=== PATIENT | male | born 1945 | race Caucasian/White ===

== ENCOUNTER 2017-08-02 13:44 | Inpatient (IN) | payer MEDICARE, BC ==
[2017-08-02] VITALS (9 sets, daily range): BP systolic 118–153; BP diastolic 60–87
[~2017-08-02] VITALS: Ht 152.4 cm; Wt 96.2 kg
[~2017-08-02 13:44] MED LIST: ALAVERT10 MG; ASPIRIN81 M2 PO; ATORVASTATIN CA20 MG PO; BENICAR HCT 401 EAC1; BENICAR HCT 401 EAC1 PO; CARDIZEM CD180 MG PO; CARTIA XT; CENTRUM SILVER1 EAC2 PO; CHROMIUM400 MCG PO; CLARITIN10 MG PO; COLACE100 MG PO; COUMADIN7.5 MG; FISH OIL 1,001000 M2 PO; GLUCOPHAGE XR500 MG PO; GLUCOSAMINE HC500 MG PO; JANTOVEN5 MG; LANOXIN 0.250.25 M1 PO; LOPERAMIDE 2 MG2 M1 PO; NEURONTIN 300300 M1 PO; POTASSIUM20 PO; REFRESH TEARS15 ML OPHTHALMIC; SALINE NASAL SPRAY; SENOKOT-S TABL1 EACH PO; TYLENOL325 MG PO; XARELTO20 MG PO; ZOFRAN ODT4 MG DISSOLVE
[2017-08-02 14:32] LABS: HEMATOCRIT 27.8 % (42.0-52.0); HEMOGLOBIN 8.6 gm/dL (14.0-18.0); MCH 25.9 pg (26.0-34.0); MCHC 30.9 g/dL (28.0-37.0); MCV 83.9 fL (80.0-100.0); NUCLEATED RBCS 0 /100WBC; PLATELET COUNT* 595 thou/uL (150-400); RBC 3.31 mil/uL (4.50-6.00); RDW-CV 23.4 % (10.5-14.5)
[2017-08-02 14:38] LABS: URINE BILIRUBIN NEGATIVE (Negative); URINE BLOOD 2+ (Negative); URINE CLARITY CLEAR; URINE COLOR YELLOW; URINE GLUCOSE-RANDOM 2+ (Negative); URINE KETONES NEGATIVE (Negative); URINE LEUKOCYTES-REFLEX NEGATIVE (Negative); URINE NITRITE-REFLEX NEGATIVE (Negative); URINE PROTEIN 3+ (Negative); URINE SPECIFIC GRAVITY >= 1.030 (1.005-1.030); URINE UROBILINOGEN 0.2 E.U./dl (0.2-1.0)
[2017-08-02 14:39] LABS: APTT 27.4 Seconds (25.0-31.3); CALCIUM 9.7 mg/dL (8.5-10.1); CREATININE 1.6 mg/dL (0.6-1.3); INR 1.3; PROTIME 13.1 Seconds (9.20-11.50)
[2017-08-02 14:43] LABS: ALBUMIN 2.4 g/dL (3.4-5.0); TOTAL BILIRUBIN 0.7 mg/dL (<0.1-1.0); TOTAL PROTEIN 6.2 g/dL (6.4-8.2)
[2017-08-02 14:47] LABS: WBC 79.2 thou/uL (4.0-11.0)
[2017-08-02 15:15] LABS: BACTERIA-REFLEX 1-9 Few /HPF (None Seen); CRYSTALS None Seen /LPF (None Seen); FINE GRANULAR CASTS 0-3 Few /LPF (None Seen); HYALINE CASTS 0-3 Few /LPF (None Seen); MUCUS 4-6 Moderate strn/LPF (None Seen); SQUAMOUS 0-3 Few /LPF (0-3); URINE RBC 0-2 Rare /HPF (0-2); URINE WBC-REFLEX 0-5 Rare /HPF (0-5)
[2017-08-02 15:18] LABS: ABSOLUTE LYMPHOCYTES 1.6 thou/uL (0.8-5.3); ABSOLUTE MONOCYTES 1.6 thou/uL (0.0-1.2)
[2017-08-02 15:19] LABS: ANISOCYTOSIS 2+; HYPOCHROMASIA 2+; PLATELET ESTIMATE INCREASED; POIKILOCYTOSIS 2+
[2017-08-03] VITALS (16 sets, daily range): BP systolic 121–150; BP diastolic 66–89
[2017-08-03 05:00] LABS: BASOPHILS 0.2 %; HEMATOCRIT 25.3 % (42.0-52.0); HEMOGLOBIN 7.7 gm/dL (14.0-18.0); LYMPHOCYTES 0.7 %; MCH 26.1 pg (26.0-34.0); MCHC 30.4 g/dL (28.0-37.0); MCV 85.7 fL (80.0-100.0); MONOCYTES 2.9 %; MPV 7.4 fl. (7.2-11.1); NUCLEATED RBCS 0 /100WBC; POLYS 96.2 %; RBC 2.96 mil/uL (4.50-6.00); RDW-CV 22.9 % (10.5-14.5)
[2017-08-03 05:05] LABS: ABSOLUTE BASOPHILS 0.1 thou/uL (0.0-0.2); ABSOLUTE LYMPHOCYTES 0.5 thou/uL (0.8-5.3); ABSOLUTE MONOCYTES 1.9 thou/uL (0.0-1.2); PLATELET COUNT* 517 thou/uL (150-400)
[2017-08-03 05:06] LABS: WBC 65.5 thou/uL (4.0-11.0)
[2017-08-03 05:11] LABS: CALCIUM 8.9 mg/dL (8.5-10.1); CREATININE 1.1 mg/dL (0.6-1.3); MAGNESIUM 2.2 mg/dL (1.8-2.4); PHOSPHORUS* 3.1 mg/dL (2.5-4.9); POTASSIUM 3.7 mmol/L (3.5-5.1)
[2017-08-03 10:34] LABS: CALCIUM 8.4 mg/dL (8.5-10.1); CREATININE 1.1 mg/dL (0.6-1.3); POTASSIUM 4.1 mmol/L (3.5-5.1)
[2017-08-03 10:38] LABS: ALBUMIN 1.9 g/dL (3.4-5.0); TOTAL BILIRUBIN 0.3 mg/dL (<0.1-1.0); TOTAL PROTEIN 5.1 g/dL (6.4-8.2)
--- NOTE | 2017-08-03 11:40 | EKG ---
[place] [address] ELECTROCARDIOGRAM REPORT Name: NY MARTINEZ Room: [address] ADM IN M.R.#: [id number] Admission: 08/02/17 Attend Phys: Teja Solis, Discharge: Date of : 45 Report #: [id number] THIS REPORT FOR: //name// [facility] ED Test Date: 2017-08-02 Test Time: 14:03:19 Pat Name: NY MARTINEZ Department: Room: [facility] Gender: M Tiltrotor Crew Chief: MS : 1945 Requested By: Angie England Order Number: [id number] MD: Gavino Smith Measurements Intervals [place] Rate: 93 P: [place]: QRS: -27 QRSD: 110 T: 122 QT: 369 QTc: 459 Interpretive Statements Atrial fibrillation Ventricular premature complex LVH with secondary repolarization abnormality Baseline wander in lead(s) V6 Compared to ECG 05/18/2012 07:02:51 Ventricular premature complex(es) now present Left ventricular hypertrophy now present Early repolarization now present Myocardial infarct finding no longer present Electronically Signed On 08-03-2017 11:39:55 FLUID DYNAMICIST by Gavino Smith [email or web address] <ELECTRONICALLY SIGNED> By: Gavino Smith MD, FACC 08/03/17 1139 1403 1403 Gavino Smith MD, FACC /EPI
[2017-08-03 15:59] LABS: HEMATOCRIT 26.9 % (42.0-52.0); HEMOGLOBIN 8.4 gm/dL (14.0-18.0)
[2017-08-04] VITALS (10 sets, daily range): BP systolic 90–153; BP diastolic 50–87
[2017-08-04 04:37] LABS: HEMATOCRIT 26.6 % (42.0-52.0); HEMOGLOBIN 8.3 gm/dL (14.0-18.0); MCH 26.6 pg (26.0-34.0); MCHC 31.3 g/dL (28.0-37.0); MCV 85.2 fL (80.0-100.0); MPV 7.4 fl. (7.2-11.1); RBC 3.12 mil/uL (4.50-6.00)
[2017-08-04 05:11] LABS: WBC 27.1 thou/uL (4.0-11.0)
[2017-08-04 05:44] LABS: ALBUMIN 1.9 g/dL (3.4-5.0); CALCIUM 8.2 mg/dL (8.5-10.1); MAGNESIUM 2.1 mg/dL (1.8-2.4); POTASSIUM 3.4 mmol/L (3.5-5.1); TOTAL BILIRUBIN 0.7 mg/dL (<0.1-1.0); TOTAL PROTEIN 5.1 g/dL (6.4-8.2)
--- NOTE | 2017-08-04 09:37 | CON ---
[facility] [address] [place] [address] CONSULTATION Name: NY MARTINEZ Room: [address] IN .R.#: [id number] Admission: 08/02/17 Attend Phys: Teja Solis, Discharge: Date of : 45 Report #: [id number] THIS REPORT FOR: //name// CC: Juan Solis DATE OF SERVICE: 08/03/2017 REQUESTING PHYSICIAN: Teja Solis M.D. REASON FOR CONSULTATION: Acute kidney injury. HISTORY OF PRESENT ILLNESS: The patient is a 72-year-old gentleman with medical history significant for stage IV pancreatic cancer, who presents with complaints of abdominal distention, abdominal pain, and unable to have bowel movements for several days prior to admission. He was diagnosed with small bowel obstruction and diverticulitis and was admitted to the hospital. He was started on IV fluids, was started on meropenem, and he had several bowel movements overnight and his creatinine on admission was 1.6, came down this morning to 1.1 and 6 hours later stayed again at 1.1. His serum sodium on admission was slightly lower at 134, 136 now. PAST MEDICAL HISTORY: Positive for stage IV pancreatic cancer. He also had coronary artery disease and history of PTCA with stent placement. FAMILY HISTORY: Noncontributory. SOCIAL HISTORY: Used to smoke, but no current tobacco or alcohol abuse. PAST SURGICAL HISTORY: He had ____ in March of 2016, splenectomy done. MEDICATIONS: Prior to admission reviewed. REVIEW OF SYSTEMS: Positive for abdominal distention and pain, which is better now. He did move his bowel. He denies any problems with urination. Denies being depressed. Denies any changes in visual or hearing acuity. PHYSICAL EXAMINATION: GENERAL: Awake, alert, and oriented. VITAL SIGNS: His blood pressure now is 136/70, heart rate 76, afebrile. HEENT: Pupils are round. NECK: [place] [address] CONSULTATION Name: NY MARTINEZ Room: [address] IN [facility].#: [id number] Admission: 08/02/17 Attend Phys: Teja Solis, Discharge: Date of : 45 Report #: [id number] LUNGS: Few coarse breath sounds but overall clear. CARDIOVASCULAR: Tachycardia. ABDOMEN: Distended, but soft. LOWER EXTREMITIES: No edema. LABORATORY DATA: Significant for a white count of 65,000 down from 79,000 yesterday, creatinine is 1.1 down from 1.6 yesterday. ASSESSMENT: Episodes of acute kidney injury due to ileus, which is resolving now, having good bowel sounds and good bowel movements. His acute kidney injury is resolving. Creatinine is down to 1.1. He is having no problems making urine. So from my standpoint, he is doing much better. I will follow him in some distance. Thank you very much for asking my opinion on acute kidney injury in this patient. <ELECTRONICALLY SIGNED> By: Jarod Cabrera MD 08/04/17 0937 1335 [id number] Cabrera MD /[facility]
--- NOTE | 2017-08-04 14:51 | 2DMMODE ---
[place] [address] 2 D/M-MODE ECHOCARDIOGRAM Name: NY MARTINEZ Room: 002P ADM IN [facility]#: [id number] Admission: 08/02/17 Attend Phys: Teja Whitt Discharge: Date of : 45 Date of Service: 08/04/17 1450 Report #: [id number] THIS REPORT FOR: //name// APPROVED REPORT Study performed: 08/04/2017 10:03:24 EXAM: Comprehensive 2D, Doppler, and color-flow Echocardiogram Patient Location: In-Patient Room #: 002 Status: routine BSA: 1.95 HR: 97 bpm BP: 135/76 mmHg Rhythm: Atrial Fibrillation Other Information Study Quality: Good Indications Atrial Fibrillation Sepsis 2D Dimensions LVEF(%): 70.31 (>50%) IVSd: 18.08 (7-11mm) LVOT Diam: 20.53 (18-24mm) LVDd: 31.42 mm PWd: 12.50 (7-11mm) Ascending Ao: 37.47 (22-36mm) LVDs: 19.31 (25-40mm) Aortic Root: 39.89 mm Bearden's LVEF: 70.31 % Volumes Left Atrial Volume (Systole) LA ESV Index: 40.90 mL/m2 Aortic Valve AoV Peak Wilton.: 2.29 m/s AO Peak Gr.: 20.95 mmHg LVOT Max P.88 mmHg AO Mean Gr.: 11.07 mmHg LVOT Mean P.89 mmHg LVOT Max V: 1.72 m/s AO V2 VTI: 38.28 cm LVOT Mean V: 1.11 m/s CASSY (VTI): 2.41 cm2 LVOT V1 VTI: 27.83 cm AI Evangeline: 2.30 m/s2 AI PHT: 616.71 [place] [address] 2 D/M-MODE ECHOCARDIOGRAM Name: NY MARTINEZ Room: [address] IN ..#: [id number] Admission: 08/02/17 Attend Phys: Teja Whitt Discharge: Date of : 45 Date of Service: 08/04/17 1450 Report #: [id number] Mitral Valve MV Decel. Time: 163.13 ms MV E Max Wilton.: 1.11 m/s MV PHT: 47.31 ms MVA (PHT): 4.65 cm2 TDI E/Lateral E': 6.53 E/Medial E': 12.33 Medial E' Wilton.: 0.09 m/s Lateral E' Wilton.: 0.17 m/s Pulmonary Valve PV Peak Wilton.: 1.27 m/s PV Peak Gr.: 6.43 mmHg Tricuspid Valve TR Peak Gr.: 29.71 mmHg RVSP: 34.00 mmHg Left Ventricle The left ventricle is normal size. There is normal LV segmental wall motion. Mild concentric left ventricular hypertrophy. Left ventricular systolic function is normal. The left ventricular ejection fraction is within the normal range. LVEF is 65%. This study is not technically sufficient to allow evaluation of the LV diastolic function due to atrial fibrillation. Right Ventricle The right ventricle is normal size. The right ventricular systolic function is normal. Atria Left atrium is mildly dilated. The right atrium size is normal. Aortic Valve Mild aortic valve sclerosis. Moderate aortic regurgitation. Mild aortic stenosis. Mitral Valve The mitral valve is normal in structure. Trace mitral regurgitation. No evidence of mitral valve stenosis. Tricuspid Valve The tricuspid valve is normal in structure. Trace tricuspid regurgitation. The RVSP is 30-[place] [address] 2 D/M-MODE ECHOCARDIOGRAM Name: NY MARTINEZ Room: [address] IN [facility]#: [id number] Admission: 08/02/17 Attend Phys: Teja Whitt Discharge: Date of : 45 Date of Service: 08/04/17 1450 Report #: [id number] Pulmonic Valve The pulmonary valve is normal in structure. There is no pulmonic valvular regurgitation. Great Vessels The aortic root is normal in size. IVC is normal in size and collapses with >50% inspiration Pericardium There is no pericardial effusion. <Conclusion> The left ventricle is normal size. Mild concentric left ventricular hypertrophy. Left ventricular systolic function is normal. The left ventricular ejection fraction is within the normal range. LVEF is 65%. This study is not technically sufficient to allow evaluation of the LV diastolic function due to atrial fibrillation. The right ventricle is normal size. Left atrium is mildly dilated. Mild aortic valve sclerosis. Moderate aortic regurgitation. Mild aortic stenosis. The mitral valve is normal in structure. Trace mitral regurgitation. The tricuspid valve is normal in structure. Trace tricuspid regurgitation. The RVSP is 30-35 mmHg. IVC is normal in size and collapses with >50% inspiration There is no pericardial effusion. There is normal LV segmental wall motion. <ELECTRONICALLY SIGNED> By: Hermelindo Celis MD, FACC 08/04/17 1450 1450 1450 Hermelindo Celis MD, FACC /INF
[2017-08-05 04:40] VITALS: BP 151/72
[2017-08-05 05:13] LABS: HEMATOCRIT 27.7 % (42.0-52.0); HEMOGLOBIN 8.8 gm/dL (14.0-18.0); MCH 27.3 pg (26.0-34.0); MCHC 31.6 g/dL (28.0-37.0); MCV 86.3 fL (80.0-100.0); MPV 7.7 fl. (7.2-11.1); RBC 3.21 mil/uL (4.50-6.00); RDW-CV 22.2 % (10.5-14.5); WBC 24.9 thou/uL (4.0-11.0)
[2017-08-05 05:38] LABS: ALBUMIN 1.9 g/dL (3.4-5.0); CREATININE 0.9 mg/dL (0.6-1.3); POTASSIUM 3.4 mmol/L (3.5-5.1); TOTAL BILIRUBIN 0.5 mg/dL (<0.1-1.0); TOTAL PROTEIN 5.2 g/dL (6.4-8.2)
[2017-08-05 08:00] VITALS: BP 149/80
[2017-08-05 11:41] VITALS: BP 163/69
[2017-08-05 16:42] VITALS: BP 163/79
[2017-08-06] VITALS (7 sets, daily range): BP systolic 153–162; BP diastolic 77–93
[2017-08-06 02:49] LABS: MAGNESIUM 2.1 mg/dL (1.8-2.4); POTASSIUM 3.4 mmol/L (3.5-5.1)
--- NOTE | 2017-08-06 17:56 | EKG ---
[place] [address] ELECTROCARDIOGRAM REPORT Name: NY MARTINEZ Room: [address] ADM IN M.R.#: [id number] Admission: 08/02/17 Attend Phys: Teja Solis, Discharge: Date of : 45 Report #: [id number] THIS REPORT FOR: //name// [facility] Test Date: 2017-08-06 Test Time: 01:46:19 Pat Name: NY MARTINEZ Department: Room: [address] Gender: M Radio Communications Superintendent: : 1945 Requested By: Gavino Smith Order Number: [id number] Reading MD: Daren Sales Measurements Intervals [place] Rate: 83 P: DE: QRS: -27 QRSD: 109 T: 154 QT: 359 QTc: 422 Interpretive Statements Atrial fibrillation Borderline left axis deviation Borderline repolarization abnormality Compared to ECG 08/02/2017 14:03:19 Ventricular premature complex(es) no longer present Left ventricular hypertrophy no longer present Electronically Signed On 08-06-2017 17:56:36 CLIENT TECHNOLOGIES SPECIALIST by Daren Sales [email or web address] <ELECTRONICALLY SIGNED> By: Daren Sales MD, FACC 08/06/17 1756 0146 0146 Daren Sales MD, [facility] /EPI
[2017-08-07] VITALS (7 sets, daily range): BP systolic 138–164; BP diastolic 65–94
[2017-08-07 04:59] LABS: HEMATOCRIT 28.7 % (42.0-52.0); HEMOGLOBIN 8.9 gm/dL (14.0-18.0); MCHC 31.1 g/dL (28.0-37.0); MCV 86.6 fL (80.0-100.0); MPV 7.9 fl. (7.2-11.1); RBC 3.31 mil/uL (4.50-6.00); RDW-CV 22.6 % (10.5-14.5); WBC 22.6 thou/uL (4.0-11.0)
[2017-08-07 05:19] LABS: ALBUMIN 1.9 g/dL (3.4-5.0); CALCIUM 8.4 mg/dL (8.5-10.1); CREATININE 0.9 mg/dL (0.6-1.3); POTASSIUM 3.5 mmol/L (3.5-5.1); TOTAL BILIRUBIN 0.5 mg/dL (<0.1-1.0); TOTAL PROTEIN 5.1 g/dL (6.4-8.2)
--- NOTE | 2017-08-07 09:00 | CON ---
[address] [address] CONSULTATION Name: NY MARTINEZ Room: [address] IN .R.#: [id number] Admission: 08/02/17 Attend Phys: Teja Solis, Discharge: Date of : 45 Report #: [id number] THIS REPORT FOR: //name// CC: Juan Solis DATE OF SERVICE: 08/03/2017 CHIEF COMPLAINT: Sepsis, abdominal pain. HISTORY OF PRESENT ILLNESS: The patient is a 72-year-old man we are asked to see him in regards to atrial fibrillation. He was admitted with sepsis syndrome and pancreatitis. He has numerous medical problems, the most severe of which is his bowel obstruction and pancreatic cancer. He has atrial fibrillation chronically and had been anticoagulated with Xarelto and baby aspirin as an outpatient by his usual aluminum pool installer at [facility]. He denies symptoms of palpitations. He has no neuro symptoms of slurred speech, numbness or weakness. From a cardiovascular standpoint, he has a history of remote PCI and denies chest pain or pressure. PAST MEDICAL HISTORY: Atrial fibrillation was diagnosed about 10 years ago. He had a PCI x 2 in 2005 and 2006. 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 HOME MEDICATIONS: Included the following: Baby aspirin, Xarelto, Cardizem 180 mg daily, gabapentin, glucosamine, metformin, Benicar/HCTZ 40/25 mg daily, potassium chloride 20 mEq daily. SOCIAL HISTORY: He is a nonsmoker. REVIEW OF SYSTEMS: GASTROINTESTINAL: Positive abdominal pain. NEUROLOGIC: Denies slurred speech, numbness or weakness. CARDIOVASCULAR: No chest pain, no palpitation, no orthopnea, no PND, no edema. HEMATOLOGIC: Positive anemia. RENAL: Positive history of renal disease. SKIN: No rash. GENERAL: No fevers or chills. PHYSICAL EXAMINATION: VITAL SIGNS: Blood pressure today is 140/70, heart rate is 80 in atrial fibrillation. GENERAL: This is a thin, cachectic appearing middle-aged male. He is alert, [place] [address] CONSULTATION Name: NY MARTINEZ Room: [address] IN [facility]#: [id number] Admission: 08/02/17 Attend Phys: Teja Solis, Discharge: Date of : 45 Report #: [id number] NECK: Supple. No jugular venous distention. CARDIOVASCULAR: Regular. There is no murmur. LUNGS: Diminished breath sounds, but clear to auscultation. ABDOMEN: Soft, nontender. EXTREMITIES: There is peripheral wasting. SKIN: Warm and dry. PSYCHIATRIC: The patient has appropriate mood and affect. Electrocardiogram demonstrates atrial fibrillation with a controlled ventricular response, no ST segment abnormalities. LABORATORY DATA: Hemoglobin 7.7, white blood cell count 65.5, platelet count is 517,000. Sodium is 136, potassium 4.1, chloride is 103, CO2 is 26, BUN is 46, creatinine is 1.1. IMPRESSION: 1. Atrial fibrillation. This is rate controlled and chronic. We will continue with conservative medical therapy. I would like to continue with Xarelto as long as there is no active bleeding. I think his anemia is secondary to chronic disease. 2. Coronary artery disease. He remains asymptomatic for angina and a conservative approach is recommended. 3. Pancreatic cancer. 4. Bowel obstruction. He is currently n.p.o. and has an NG tube. If need be when his Xarelto is cleared from his system within the next 3-4 days, I would switch him over to Lovenox, but currently I suspect this drug is not being cleared very quickly and I would not start this until mid week. <ELECTRONICALLY SIGNED> By: Gavino Smith MD, FACC 08/07/17 0900 1127 [id number] Smith MD, FACC /nt
[2017-08-07 15:32] LABS: POTASSIUM 3.4 mmol/L (3.5-5.1)
[2017-08-07 17:22] LABS: HEMATOCRIT 28.6 % (42.0-52.0); HEMOGLOBIN 9.2 gm/dL (14.0-18.0)
[2017-08-07 17:32] LABS: INR 1.2; PROTIME 11.9 Seconds (9.20-11.50)
[2017-08-08 04:00] VITALS: BP 166/85
[2017-08-08 08:00] VITALS: BP 158/88
[2017-08-08 08:26] LABS: HEMATOCRIT 28.7 % (42.0-52.0); HEMOGLOBIN 9.1 gm/dL (14.0-18.0); MCH 27.2 pg (26.0-34.0); MCHC 31.7 g/dL (28.0-37.0); MPV 7.9 fl. (7.2-11.1); RBC 3.34 mil/uL (4.50-6.00); RDW-CV 23.1 % (10.5-14.5); WBC 19.5 thou/uL (4.0-11.0)
[2017-08-08 08:31] LABS: CALCIUM 8.3 mg/dL (8.5-10.1); CREATININE 0.9 mg/dL (0.6-1.3); POTASSIUM 3.5 mmol/L (3.5-5.1)
[2017-08-08 12:27] VITALS: BP 186/91
[2017-08-08 15:53] VITALS: BP 166/91
[2017-08-08 19:45] VITALS: BP 182/90
[2017-08-09 00:08] VITALS: BP 166/92
[2017-08-09 04:27] VITALS: BP 169/90
[2017-08-09 08:30] VITALS: BP 167/82
[2017-08-09 12:10] VITALS: BP 149/83
[2017-08-09 16:00] VITALS: BP 165/78
[2017-08-09 20:20] VITALS: BP 143/83
[2017-08-10 00:02] VITALS: BP 148/89
[2017-08-10 04:00] VITALS: BP 146/76
[2017-08-10 09:00] VITALS: BP 161/78
[2017-08-10 12:01] VITALS: BP 137/79
[2017-08-10 16:43] VITALS: BP 124/67
[2017-08-10 20:00] VITALS: BP 148/75
[2017-08-11 00:06] VITALS: BP 140/73
[2017-08-11 03:41] VITALS: BP 150/77
[2017-08-11 06:25] LABS: HEMATOCRIT 26.7 % (42.0-52.0); HEMOGLOBIN 8.4 gm/dL (14.0-18.0); MCH 27.6 pg (26.0-34.0); MCHC 31.6 g/dL (28.0-37.0); MCV 87.4 fL (80.0-100.0); MPV 8.1 fl. (7.2-11.1); RBC 3.06 mil/uL (4.50-6.00); RDW-CV 23.6 % (10.5-14.5); WBC 15.5 thou/uL (4.0-11.0)
[2017-08-11 06:47] LABS: ALBUMIN 1.8 g/dL (3.4-5.0); CREATININE 0.9 mg/dL (0.6-1.3); MAGNESIUM 1.8 mg/dL (1.8-2.4); TOTAL BILIRUBIN 0.5 mg/dL (<0.1-1.0); TOTAL PROTEIN 4.7 g/dL (6.4-8.2)
[2017-08-11 06:50] LABS: POTASSIUM 2.7 mmol/L (3.5-5.1)
[2017-08-11 09:30] VITALS: BP 142/80
[2017-08-11 12:18] VITALS: BP 158/84
[2017-08-11 17:23] VITALS: BP 148/77
[2017-08-11 20:30] VITALS: BP 149/89
[2017-08-12] VITALS: BP 152/71
[2017-08-12 04:49] VITALS: BP 142/72
[2017-08-12 06:07] LABS: HEMATOCRIT 29.9 % (42.0-52.0); HEMOGLOBIN 9.5 gm/dL (14.0-18.0); MCH 27.7 pg (26.0-34.0); MCHC 31.8 g/dL (28.0-37.0); MCV 87.2 fL (80.0-100.0); MPV 8.2 fl. (7.2-11.1); RBC 3.43 mil/uL (4.50-6.00); RDW-CV 24.1 % (10.5-14.5); WBC 13.3 thou/uL (4.0-11.0)
[2017-08-12 07:04] LABS: ALBUMIN 1.9 g/dL (3.4-5.0); CALCIUM 7.8 mg/dL (8.5-10.1); MAGNESIUM 1.9 mg/dL (1.8-2.4); POTASSIUM 3.4 mmol/L (3.5-5.1); TOTAL BILIRUBIN 0.6 mg/dL (<0.1-1.0); TOTAL PROTEIN 5.1 g/dL (6.4-8.2)
[2017-08-12 08:00] VITALS: BP 154/89
[2017-08-12 11:30] VITALS: BP 160/93
[2017-08-12 15:08] LABS: MAGNESIUM 2.1 mg/dL (1.8-2.4); POTASSIUM 3.7 mmol/L (3.5-5.1)
--- NOTE | 2017-08-12 15:46 | EKG ---
[place] [address] ELECTROCARDIOGRAM REPORT Name: NY MARTINEZ Room: [address] ADM IN M.R.#: [id number] Admission: 08/02/17 Attend Phys: Teja Solis, Discharge: Date of : 45 Report #: [id number] THIS REPORT FOR: //name// [facility] Test Date: 2017-08-12 Test Time: 00:51:51 Pat Name: NY MARTINEZ Department: Room: [address] Gender: M Cardiac Rehabilitation Program Director: RAÚL : 1945 Requested By: Teja Solis Order Number: [id number] Lea MD: Daren Sales Measurements Intervals [place] Rate: 74 P: [place]: QRS: -24 QRSD: 114 T: 146 QT: 394 QTc: 438 Interpretive Statements Atrial fibrillation Multiple ventricular premature complexes Incomplete left bundle branch block Borderline ST elevation, anterior leads Compared to ECG 08/06/2017 01:46:19 Ventricular premature complex(es) now present Left bundle-branch block now present ST (T wave) deviation now present Electronically Signed On 08-12-2017 15:46:23 CHILD CARE DEVELOPMENT SPECIALIST by Daren Sales [email or web address] <ELECTRONICALLY SIGNED> By: Daren Sales MD, FACC 08/12/17 1546 005 005 Daren Sales MD, FACC /EPI
--- NOTE | 2017-08-12 15:46 | EKG ---
[place] [address] ELECTROCARDIOGRAM REPORT Name: NY MARTINEZ Room: [address] ADM IN M.R.#: [id number] Admission: 08/02/17 Attend Phys: Teja Solis, Discharge: Date of : 45 Report #: [id number] THIS REPORT FOR: //name// [facility] Test Date: 2017-08-12 Test Time: 00:41:19 Pat Name: NY MARTINEZ Department: Room: [address] Gender: M Hospital Receiving Clerk: RAÚL : 1945 Requested By: Teja Solis Order Number: [id number] Lea MD: Daren Sales Measurements Intervals [place] Rate: 89 P: [place]: QRS: -27 QRSD: 110 T: 173 QT: 389 QTc: 474 Interpretive Statements Atrial fibrillation Premature ventricular beat Incomplete left bundle branch block Inferior infarct, old Borderline ST elevation, anterior leads Baseline wander in lead(s) V2 Compared to ECG 08/06/2017 01:46:19 Ventricular premature complex(es) now present Left bundle-branch block now present Myocardial infarct finding now present ST (T wave) deviation now present Electronically Signed On 08-12-2017 15:46:08 POPCORN MACHINE OPERATOR by Daren Sales [email or web address] <ELECTRONICALLY SIGNED> By: Daren Sales MD, FACC 08/12/17 1546 004 Daren Sales MD, FACC /EPI
[2017-08-12 16:00] VITALS: BP 168/79
[2017-08-12 20:21] VITALS: BP 144/79
[2017-08-13] VITALS (7 sets, daily range): BP systolic 124–169; BP diastolic 74–89
[2017-08-13 05:52] LABS: CREATININE 0.9 mg/dL (0.6-1.3); POTASSIUM 3.3 mmol/L (3.5-5.1)
--- NOTE | 2017-08-13 14:45 | CON ---
[address] [address] CONSULTATION Name: NY MARTINEZ Room: [address] IN .R.#: [id number] Admission: 08/02/17 Attend Phys: Teja Solis, Discharge: Date of : 45 Report #: [id number] THIS REPORT FOR: //name// CC: Juan Solis MD DATE OF SERVICE: 08/03/2017 REASON FOR CONSULT: Partial small bowel obstruction. REQUESTING PHYSICIAN: Dr. Teja Solis. HISTORY OF PRESENT ILLNESS: This is a 72-year-old male with history of stage IV pancreatic CA who is on chemotherapy and has had previous history of partial pancreatectomy and splenectomy. The patient presents with abdominal pain, distention and evidence of partial small-bowel obstruction per CT. Since admission, we have placed an NG tube to intermittent suction. KUB, which followed today reveals resolution of the dilated bowels. The patient's abdomen is soft and he has had 3 bowel movements since early hours of this morning. There is no evidence of hematochezia, melena, or hematemesis. The patient has been anemic with hemoglobin of 7 and he is currently being transfused with 1 unit of packed RBC. PAST MEDICAL HISTORY: Significant for history of stage IV pancreatic cancer, status post partial pancreatectomy and splenectomy, hyperlipidemia, AFib, anemia, coronary artery disease, left rotator cuff injury, angioplasty with stent placement, Pati's syndrome. ALLERGIES: No known drug allergy. MEDICATIONS: Please refer to hospital MAR. SOCIAL HISTORY: The patient lives at home, has a stage IV pancreatic cancer and denies tobacco or alcohol use. FAMILY HISTORY: Noncontributory. PHYSICAL EXAMINATION: VITAL SIGNS: Reveals blood pressure of 136/70, respiration 19, pulse 76, temperature 97.8. LUNGS: Clear. CARDIOVASCULAR: Regular. ABDOMEN: Mildly distended, but soft. Bowel sounds are positive[place] [address] CONSULTATION Name: NY MARTINEZ Room: [address] IN [facility].#: [id number] Admission: 08/02/17 Attend Phys: Teja Solis, Discharge: Date of : 45 Report #: [id number] NEUROLOGIC: The patient is alert, oriented x 3. LABORATORY DATA: Reveal sodium of 136, potassium 4.1, BUN is 46, creatinine 1.1, glucose is 226, total bilirubin 0.3, alkaline phosphatase 124, ALT is 17, AST is 19, WBC is 65.5, down from 79 yesterday, hemoglobin 7.7, down from 8.6, platelet is 517. IMAGING: CT of abdomen and pelvis was obtained on admission. The findings were suggestive of partial small-bowel obstruction with possible sigmoid diverticulitis and constipation. There is also some evidence of right abdominal and pelvic ascites and diffuse stranding throughout the mesenteric fat. ASSESSMENT AND PLAN: The patient with history of stage IV cancer who presents with evidence of partial small-bowel obstruction, which has resolved since admission. There is always some stranding and possible colitis versus diverticulitis of the sigmoid region, we will recommend IV antibiotics. The patient still has the NG tube, which is in the proximal stomach. We will advance it further into the stomach and if the output is low, we will discontinue it by this evening. Subsequently, when the patient is able to eat, he should receive low residue diet and stool softener such as MiraLax 17 grams p.o. b.i.d. We will continue monitoring the patient during this hospitalization. <ELECTRONICALLY SIGNED> By: Pascual Chacon MD 08/13/17 1445 1245 [id number] Chacon MD /nt
[2017-08-14 01:27] VITALS: BP 159/77
[2017-08-14 04:35] VITALS: BP 162/75
[2017-08-14 05:28] LABS: HEMATOCRIT 28.2 % (42.0-52.0); HEMOGLOBIN 9.1 gm/dL (14.0-18.0); MCH 28.4 pg (26.0-34.0); MCHC 32.4 g/dL (28.0-37.0); MCV 87.6 fL (80.0-100.0); MPV 7.8 fl. (7.2-11.1); RBC 3.22 mil/uL (4.50-6.00); RDW-CV 24.8 % (10.5-14.5); WBC 14.4 thou/uL (4.0-11.0)
[2017-08-14 05:37] LABS: ALBUMIN 1.8 g/dL (3.4-5.0); CALCIUM 8.2 mg/dL (8.5-10.1); CREATININE 0.9 mg/dL (0.6-1.3); MAGNESIUM 1.9 mg/dL (1.8-2.4); POTASSIUM 3.5 mmol/L (3.5-5.1); TOTAL BILIRUBIN 0.5 mg/dL (<0.1-1.0); TOTAL PROTEIN 5.1 g/dL (6.4-8.2)
[2017-08-14 07:30] VITALS: BP 149/73
[2017-08-14 12:00] VITALS: BP 138/81
[2017-08-14 12:01] VITALS: BP 125/68
[2017-08-14] MEDS ORDERED: LASIX 20 MG TAB20 MG PO (12:11)
[2017-08-14] MEDS ORDERED: NORCO 10-325 T1 EACH PO (12:11)
[2017-08-14 13:28] VITALS: BP 125/68
== END 2017-08-14 14:29 | DRG 871 ==
LOC: M.ERS 13:44 → M.ICU 15:04 → M.TBA-ER 15:04 → M.ICU 17:08 → M.2W 08-04 20:18
PROVIDERS: Internal Medicine; Nurse Practitioner Adult Health; Physician Assistant; Surgery; ADMIT Family Medicine
PROC: 30233N1 Transfusion of Nonautologous Red Blood Cells into Peripheral Vein, Percutaneous Approach (ICD-10-PCS; principal; 2017-08-03)
PROC: 0DH67UZ Insertion of Feeding Device into Stomach, Via Natural or Artificial Opening (ICD-10-PCS; 2017-08-07)
DX: A41.9 Sepsis, unspecified organism (principal); N17.0 Acute kidney failure with tubular necrosis; J96.01 Acute respiratory failure with hypoxia; J18.9 Pneumonia, unspecified organism; E43 Unspecified severe protein-calorie malnutrition; M02.30 Reiter's disease, unspecified site; K56.609 Unspecified intestinal obstruction, unspecified as to partial versus complete obstruction; K56.7 Ileus, unspecified; R18.8 Other ascites; C25.9 Malignant neoplasm of pancreas, unspecified; Z68.41 Body mass index [BMI] 40.0-44.9, adult; K57.92 Diverticulitis of intestine, part unspecified, without perforation or abscess without bleeding; I25.10 Atherosclerotic heart disease of native coronary artery without angina pectoris; E78.5 Hyperlipidemia, unspecified; E86.0 Dehydration; R31.9 Hematuria, unspecified; I48.2 Chronic atrial fibrillation; R73.9 Hyperglycemia, unspecified; Z51.5 Encounter for palliative care; E87.6 Hypokalemia; Z95.5 Presence of coronary angioplasty implant and graft; Z90.81 Acquired absence of spleen; Z79.899 Other long term (current) drug therapy; Z90.49 Acquired absence of other specified parts of digestive tract